=== PATIENT | male | born 1955 | race Caucasian/White ===

== ENCOUNTER 2016-09-29 09:25 | Inpatient (IN) | payer BC, OTHER ==
[2016-09-29] MEDS ORDERED: Albuterol 0.083% 2.5 MG/3 ML Neb Soln NEB ONE (10:19)
[2016-09-29] MEDS ORDERED: Sodium Chloride 0.9% 10 ML Syringe FLUSH PRN (12:05)
[2016-09-29] MEDS ORDERED: Promethazine 25 MG/ML SDV IM PRN (13:07)
[2016-09-29] MEDS ORDERED: Polyethylene Glycol 3350 Powder 17 GM Packet PO PRN (13:07)
[2016-09-29] MEDS ORDERED: Ondansetron 4 MG/2 ML SDV IVPUSH PRN (13:07)
[2016-09-29] MEDS ORDERED: diphenhydrAMINE 50 MG/ML SDV IVPUSH PRN (13:07)
[2016-09-29] MEDS ORDERED: hydrOXYzine HCl 100 MG/2 ML SDV IM PRN (13:07)
[2016-09-29] MEDS ORDERED: Zolpidem 5 MG Tab PO PRN (13:07)
[2016-09-29] MEDS ORDERED: Bisacodyl 5 MG Tab PO PRN (13:07)
[2016-09-29] MEDS ORDERED: Benzocaine/Cetylpyridinium/Menthol Lozenge MUCMEM PRN (13:07)
[2016-09-29] MEDS ORDERED: Ibuprofen 600 MG Tab PO PRN (13:09)
[2016-09-29] MEDS ORDERED: fentaNYL 100 MCG/2 ML SDV IVPUSH PRN (13:09)
[2016-09-29] MEDS ORDERED: Propofol 200 MG/20 ML SDV ONE (13:18)
[2016-09-29] MEDS ORDERED: Bupivacaine 0.5%/EPINEPHrine 1:200,000 50 ML MDV ONE (13:18)
[2016-09-29] MEDS ORDERED: Lidocaine 1% 50 ML MDV ONE (13:18)
[2016-09-29] MEDS ORDERED: Midazolam 1 MG/ML 2 ML SDV ONE (13:18)
--- NOTE | 2016-09-29 14:58 | EDM.PDOC ---
ED HPI GENERAL MEDICAL PROBLEM - General Chief Complaint: Respiratory Problem Stated Complaint: SORE THROAT, EARACHE, LOW O2 Time Seen by Provider: 09/29/16 09:58 Source of Information: Reports: Patient, Other (From clinic) History Limitations: Reports: Other (Dyspnea) - History of Present Illness INITIAL COMMENTS - FREE TEXT/NARRATIVE: This patient comes from clinic. The clinic PA called and notified us he was coming. He complains of shortness of breath since yesterday. He was unable to sleep last night he says he gets short of breath like this every month. He's been coughing up white sputum. In clinic he was hypoxic with sats in the high 70s and this came up greater than 90 with oxygen. Patient denies any edema. He denies any history of heart disease no history of CHF. He did have a AAA repair in [place] last March. He also has COPD. He does not use home oxygen. He denies fever - Related Data Allergies Allergy/AdvReac Type Severity Reaction Status Date / Time amoxicillin Allergy Rash Verified 10/20/14 06:54 Home Meds: Home Meds Ferrous Sulfate 325 mg PO BIDM 03/04/14 [History] Acetaminophen [Tylenol] 650 mg PO Q6HR PRN 09/29/16 [History] Aspirin [Halfprin] 81 mg PO DAILY 09/29/16 [History] Balsalazide [Colazal] 750 mg PO TID 09/29/16 [History] Ferrous Sulfate 325 mg PO BID 09/29/16 [History] Multivitamin [Multi-Day Vitamins] 1 tab PO DAILY 09/29/16 [History] Past Medical History Cardiovascular History: Reports: Aneurysm, Hypertension, SOB on Exertion Respiratory History: Reports: COPD Other Gastrointestinal History: "bleeding" colitis - Past Surgical History Cardiovascular Surgical History: Reports: AAA repair Respiratory Surgical History: Reports: None GI Surgical History: Reports: Hernia Repair/Other Other GI Surgeries/Procedures: hernis repair x 2 Social & Family History - Tobacco Use Smoking Status *Q: Current Some Day Smoker Years of Tobacco use: 20 Packs/Tins Daily: 0.5 Used Tobacco, but Quit: No Month Tobacco Last Used: september Second Hand Smoke Exposure: Yes - Caffeine Use Caffeine Use: Reports: Coffee, Soda - Alcohol Use Days Per Week of Alcohol Use: 0 - Recreational Drug Use Recreational Drug Use: No ED ROS GENERAL - Review of Systems Review Of Systems: ROS reveals no pertinent complaints other than HPI. ED EXAM, GENERAL - Physical Exam Exam: See Below Exam Limited By: No Limitations General Appearance: Alert, Moderate Distress, Obese Eye Exam: Bilateral Eye: Normal Inspection Nose: Normal Inspection Throat/Mouth: Normal Inspection, Normal Oropharynx, Other (Possibly some stridor ) Head: Atraumatic Neck: Normal Inspection Respiratory/Chest: Other (Breath sounds decreased in both lungs. There is a high -pitched wheezing noise in both lungs which sounds like it could be some transmitted upper airway noise) GI/Abdominal: Non-Tender Back Exam: Normal Inspection Extremities: Normal Inspection Neurological: Alert, Oriented, No Motor/Sensory Deficits Psychiatric: Normal Affect Skin Exam: Warm, Dry Course - Vital Signs Last Recorded V/S: Last Vital Signs Temp 36.1 C 09/29/16 14:30 Pulse 84 09/29/16 14:30 Resp 20 09/29/16 14:30 BP 123/73 09/29/16 14:30 Pulse Ox 96 09/29/16 14:40 - Orders/Labs/Meds Orders: Active Orders 24 hr Category Date Time Status Patient Status [ADT] Routine ADT 09/29/16 13:07 Active EKG Documentation Completion [RC] ASDIRECTED Care 09/29/16 10:19 Active Intake and Output [RC] QSHIFT Care 09/29/16 13:08 Active May Shower [RC] ASDIRECTED Care 09/29/16 13:07 Active Oxygen Therapy [RC] PRN Care 09/29/16 13:07 Active Pulse Oximetry [RC] CONTINUOUS Care 09/29/16 13:08 Active RT Aerosol Therapy [RC] ASDIRECTED Care 09/29/16 10:19 Active RT Incentive Spirometry [RC] ASDIRECTED Care 09/29/16 13:07 Active Up With Assistance [RC] ASDIRECTED Care 09/29/16 13:07 Active Vital Signs [RC] PER UNIT ROUTINE Care 09/29/16 13:07 Active Regular Diet [DIET] Diet 09/29/16 Dinner Active Chest 2V [CR] Urgent Exams 09/29/16 10:19 Taken BASIC METABOLIC PANEL,BMP [CHEM] AM Lab 09/30/16 05:11 Ordered CBC WITH AUTO DIFF [HEME] AM Lab 09/30/16 05:11 Ordered Acetaminophen/HYDROcodone [[place] 325-10 MG] Med 07/15/17 13:07 Active 2 tab PO Q4H PRN Benzocaine/Cetylpyrd/Menthol [Cepacol Sore Throat] Med 09/29/16 13:07 Active 1 lozenge MUCMEM Q1H PRN Bisacodyl [Dulcolax] Med 09/29/16 13:07 Active 5 mg PO DAILY PRN Docusate Sodium [Colace] Med 09/29/16 13:07 Active 100 mg PO BID PRN Docusate Sodium/Sennosides [Senna Plus] Med 09/29/16 13:07 Active 1 tab PO BID PRN Ibuprofen [Motrin] Med 09/29/16 13:09 Active 600 mg PO Q6H PRN Ondansetron [Zofran] Med 09/29/16 13:07 Active 4 mg IVPUSH Q6H PRN Polyethylene Glycol 3350 [MiraLAX] Med 09/29/16 13:07 Active 17 gm PO DAILY PRN Promethazine [Phenergan] Med 09/29/16 13:07 Active 25 mg IM Q6H PRN Sodium Chloride 0.9% [Saline Flush] Med 09/29/16 12:05 Active 10 ml FLUSH ASDIRECTED PRN Zolpidem [Ambien] Med 09/29/16 13:07 Active 5 mg PO BEDTIME PRN diphenhydrAMINE [Benadryl] Med 09/29/16 13:07 Active 50 mg IVPUSH Q4H PRN fentaNYL [Sublimaze] Med 09/29/16 13:09 Active 10 - 30 mcg IVPUSH Q1H PRN hydrOXYzine HCl [Vistaril] Med 09/29/16 13:07 Active 50 mg IM Q4H PRN Saline Lock Insert [OM.PC] Urgent Oth 09/29/16 12:05 Ordered Resuscitation Status Routine Resus Stat 09/29/16 13:07 Ordered EKG 12 Lead [EK] Urgent Ther 09/29/16 10:19 Ordered Medication Orders Hydrocodone Bitart/Acetaminophen ([place] 325-10 Mg) 2 tab PO Q4H PRN PRN Reason: Pain (severe 7-10) Benzocaine/Menthol (Cepacol Sore Throat) 1 lozenge MUCMEM Q1H PRN PRN Reason: Sore Throat Bisacodyl (Dulcolax) 5 mg PO DAILY PRN PRN Reason: Constipation Diphenhydramine HCl (Benadryl) 50 mg IVPUSH Q4H PRN PRN Reason: Itching Docusate Sodium (Colace) 100 mg PO BID PRN PRN Reason: Constipation Fentanyl (Sublimaze) 10 - 30 mcg IVPUSH Q1H PRN PRN Reason: Pain (severe 7-10) Hydroxyzine HCl (Vistaril) 50 mg IM Q4H PRN PRN Reason: Nausea Ibuprofen (Motrin) 600 mg PO Q6H PRN PRN Reason: Pain Ondansetron HCl (Zofran) 4 mg IVPUSH Q6H PRN PRN Reason: Nausea/Vomiting Polyethylene Glycol (Miralax) 17 gm PO DAILY PRN PRN Reason: Constipation Promethazine HCl (Phenergan) 25 mg IM Q6H PRN PRN Reason: Nausea Senna/Docusate Sodium (Senna Plus) 1 tab PO BID PRN PRN Reason: Constipation Sodium Chloride (Saline Flush) 10 ml FLUSH ASDIRECTED PRN PRN Reason: Keep Vein Open Zolpidem Tartrate (Ambien) 5 mg PO BEDTIME PRN PRN Reason: Insomnia Labs: Laboratory Tests 09/29/16 09/29/16 Range/Units 10:28 10:28 WBC 8.0 (4.5-11.0) K/uL RBC 5.19 (4.30-5.90) M/uL Hgb 14.7 (12.0-15.0) g/dL Hct 46.4 (40.0-54.0) % MCV 89 (80-98) fL MCH 28 (27-31) pg MCHC 32 (32-36) % Plt Count 248 (150-400) K/uL Neut % (Auto) 73 H (36-66) % Lymph % (Auto) 20 L (24-44) % [place] % (Auto) 6 (2-6) % Eos % (Auto) 0 L (2-4) % Baso % (Auto) 0 (0-1) % Sodium 135 L (140-148) mmol/L Potassium 4.0 (3.6-5.2) mmol/L Chloride 99 L (100-108) mmol/L Carbon Dioxide 31 (21-32) mmol/L Anion Gap 9.0 (5.0-14.0) mmol/L BUN 10 (7-18) mg/dL Creatinine 0.9 (0.8-1.3) mg/dL Est Cr Clr Drug Dosing 106.93 mL/min Estimated GFR (MDRD) > 60 (>60) Glucose 106 (74-106) mg/dL Calcium 8.9 (8.5-10.1) mg/dL Total Bilirubin 0.3 (0.2-1.0) mg/dL AST 19 (15-37) U/L ALT 23 (12-78) U/L Alkaline Phosphatase 93 (46-116) U/L Troponin I < 0.017 (0.000-0.056) ng/mL Gmn-T-Yagkoqwrjqi Pept 275 H (5-125) pg/mL Total Protein 8.2 (6.4-8.2) g/dL Albumin 3.5 (3.4-5.0) g/dL Globulin 4.7 H (2.3-3.5) g/dL Albumin/Globulin Ratio 0.7 L (1.2-2.2) Meds: Medications Generic Name Dose Route Start Last Admin Trade Name Freq PRN Reason Stop Dose Admin Hydrocodone Bitart/Acetaminophen 2 tab 09/29/16 13:07 [place] 325-10 Mg PO Q4H PRN Pain (severe 7-10) Benzocaine/Menthol 1 lozenge 09/29/16 13:07 Cepacol Sore Throat MUCMEM Q1H PRN Sore Throat Bisacodyl 5 mg 09/29/16 13:07 Dulcolax PO DAILY PRN Constipation Diphenhydramine HCl 50 mg 09/29/16 13:07 Benadryl IVPUSH Q4H PRN Itching Docusate Sodium 100 mg 09/29/16 13:07 Colace PO BID PRN Constipation Fentanyl 10 - 30 mcg 09/29/16 13:09 Sublimaze IVPUSH Q1H PRN Pain (severe 7-10) Hydroxyzine HCl 50 mg 09/29/16 13:07 Vistaril IM Q4H PRN Nausea Ibuprofen 600 mg 09/29/16 13:09 Motrin PO Q6H PRN Pain Ondansetron HCl 4 mg 09/29/16 13:07 Zofran IVPUSH Q6H PRN Nausea/Vomiting Polyethylene Glycol 17 gm 09/29/16 13:07 Miralax PO DAILY PRN Constipation Promethazine HCl 25 mg 09/29/16 13:07 Phenergan IM Q6H PRN Nausea Senna/Docusate Sodium 1 tab 09/29/16 13:07 Senna Plus PO BID PRN Constipation Sodium Chloride 10 ml 09/29/16 12:05 Saline Flush FLUSH ASDIRECTED PRN Keep Vein Open Zolpidem Tartrate 5 mg 09/29/16 13:07 Ambien PO BEDTIME PRN Insomnia Discontinued Medications Generic Name Dose Route Start Last Admin Trade Name Freq PRN Reason Stop Dose Admin Albuterol 2.5 mg 09/29/16 10:19 09/29/16 10:27 Proventil Neb Soln NEB 09/29/16 10:20 2.5 mg ONETIME ONE Administration Bupivacaine HCl/Epinephrine Bitart Confirm 09/29/16 13:18 Marcaine 0.5%/Epinephrine 1:200,000 Administered 09/29/16 13:19 Dose 50 ml .ROUTE .STK-MED ONE Lidocaine HCl Confirm 09/29/16 13:18 Xylocaine 1% Administered 09/29/16 13:19 Dose 50 ml .ROUTE .STK-MED ONE Midazolam HCl Confirm 09/29/16 13:18 Versed 1 Mg/Ml Administered 09/29/16 13:19 Dose 2 mg .ROUTE .STK-MED ONE Propofol Confirm 09/29/16 13:18 Diprivan 20 Ml Administered 09/29/16 13:19 Dose 200 mg .ROUTE .STK-MED ONE - Radiology Interpretation Free Text/Narrative:: Chest x-ray shows complete collapse of the right lung. No evidence of tension pneumothorax. Heart size looks normal. - Re-Assessments/Exams Free Text/Narrative Re-Assessment/Exam: 09/29/16 14:56 Dr. Patel was notified and he has come to the emergency department to see the patient. He will be taking him to surgery shortly Departure - Departure Time of Disposition: 14:57 Disposition: Admitted As Inpatient 68 Condition: Fair Clinical Impression: Collapse of right lung - Discharge Information - My Orders Last 24 Hours: My Active Orders 09/29/16 10:19 EKG Documentation Completion [RC] ASDIRECTED RT Aerosol Therapy [RC] ASDIRECTED Chest 2V [CR] Urgent EKG 12 Lead [EK] Urgent 09/29/16 12:05 Sodium Chloride 0.9% [Saline Flush] 10 ml FLUSH ASDIRECTED PRN Saline Lock Insert [OM.PC] Urgent - Assessment/Plan Last 24 Hours: My Active Orders 09/29/16 10:19 EKG Documentation Completion [RC] ASDIRECTED RT Aerosol Therapy [RC] ASDIRECTED Chest 2V [CR] Urgent EKG 12 Lead [EK] Urgent 09/29/16 12:05 Sodium Chloride 0.9% [Saline Flush] 10 ml FLUSH ASDIRECTED PRN Saline Lock Insert [OM.PC] Urgent
[2016-09-29] MEDS: Acetaminophen/HYDROcodone 325-10 MG Tab PO PRN ×2 (15:28→19:51)
[2016-09-29] MEDS: Ferrous Sulfate 325 MG Tab PO SCH (18:24)
--- NOTE | 2016-09-29 20:45 | CONS ---
DATE OF SERVICE: 09/29/2016 REFERRING PHYSICIAN: CONSULTING PHYSICIAN: Manjit Patel MD REASON FOR CONSULTATION: Shortness of breath. HISTORY OF PRESENT ILLNESS: A pleasant 60-year-old male, who has had a less than 24-hour history of right-sided chest pain. This is a new problem for him. Pain is described as 1 to 2/10. This started yesterday when he jumped out of a semi, but did not fall nor was there any evidence of trauma or other abnormalities. PAST MEDICAL HISTORY: 1. Inguinal hernia. 2. History of colitis. PAST SURGICAL HISTORY: No previous pneumothorax repair on the right side. SOCIAL HISTORY: He has remote smoking history. REVIEW OF SYSTEMS: GENERAL: The patient has no concerns. HEENT: No symptoms. CARDIOVASCULAR: No history of myocardial infarction per the patient/chart. RESPIRATORY: As above. GASTROINTESTINAL: No symptoms. The remainder review of systems was reviewed and is negative. PHYSICAL EXAMINATION: VITAL SIGNS: Blood pressure 153/93 and 93% on 2 L. HEENT: Pupils are equal. NECK: Supple. LUNGS: No air movement, right. CARDIOVASCULAR: Regular rhythm and rate. ABDOMEN: Bowel sounds positive. EXTREMITIES: Full range of motion. Strength 5/5. NEUROLOGIC: Oriented x3. PSYCH: No gross depression. LABORATORY DATA: White blood cell count, hemoglobin, and creatinine are all normal. IMAGING: I did review the chest x-ray on 09/29 which shows a right-sided pneumothorax. ASSESSMENT: Pneumothorax. PLAN: The patient will be taken to the operating room for a chest tube placement. We discussed risks, benefits, alternatives, and limitations, including, but not limited to infection, bleeding, requirement for reoperation, requirement for replacement of chest tube and other risks not listed here. The patient understands these risks and wishes to proceed. Manjit Patel MD /[id number]
[2016-09-29] MEDS: BALSALAZIDE 750 MG PO SCH (21:00)
[2016-09-30] MEDS: BALSALAZIDE 750 MG PO SCH ×3 (05:01→20:54)
[2016-09-30] MEDS: Aspirin 81 MG Tab.EC PO SCH (08:15)
[2016-09-30] MEDS: Multivitamins with Iron/Calcium/Folic Acid/Minerals Tab PO SCH (08:15)
[2016-09-30] MEDS: Ferrous Sulfate 325 MG Tab PO SCH ×2 (08:15→17:00)
[2016-09-30] MEDS: Acetaminophen/HYDROcodone 325-10 MG Tab PO PRN ×2 (08:15→22:16)
--- NOTE | 2016-09-30 10:29 | PN ---
DATE OF SERVICE: 09/30/2016 SUBJECTIVE: The patient is doing well today. He subjectively states his breathing significantly improved. No nausea, vomiting, shortness of breath, or chest pain. OBJECTIVE: VITAL SIGNS: The patient is afebrile 97.2, blood pressure 139/74, 93% on 2 L CARDIOVASCULAR: Regular rate. RESPIRATORY: Improved inspiratory effort bilaterally. Crackles right. LABORATORY RESULTS: Normal CBC, normal basic metabolic panel. IMAGING: I did review the chest x-ray which shows a fully-inflated right lung. ASSESSMENT AND PLAN: We will continue chest tube. This does have a small air leak on it and this will probably take a few days to seal. We will continue daily chest x-ray. We will work on diet and activity. Manjit Patel MD /[id number]
[2016-10-01] MEDS: BALSALAZIDE 750 MG PO SCH ×3 (05:44→20:34)
[2016-10-01] MEDS: Acetaminophen/HYDROcodone 325-10 MG Tab PO PRN (08:04)
[2016-10-01] MEDS: Ferrous Sulfate 325 MG Tab PO SCH ×2 (08:05→17:11)
[2016-10-01] MEDS: Aspirin 81 MG Tab.EC PO SCH (08:06)
[2016-10-01] MEDS: Multivitamins with Iron/Calcium/Folic Acid/Minerals Tab PO SCH (08:06)
--- NOTE | 2016-10-01 08:29 | OR ---
DATE OF PROCEDURE: 09/29/2016 PROCEDURE: Right-sided chest tube placement. PREOPERATIVE DIAGNOSIS: Pneumothorax. POSTOPERATIVE DIAGNOSIS: Pneumothorax. RISK: Risks, benefits, alternatives, and limitations, including, but not limited to infection, bleeding, pneumothorax, and other risks were explained to the patient and they wished to proceed. PROCEDURE IN DETAIL: The patient was placed in left lateral decubitus position. The right side was then prepped and draped. The skin was anesthetized with lidocaine. A single transverse incision was made and a Jessica clamp was used to dilate the tract. There was noted to be a camar[place] of air consistent with pneumothorax. A 20-Persian tube was then introduced and advanced into the chest proper. There was noted to be condensation on the tube, this was hooked to -20 mmHg and there was bubbling consistent with pneumothorax. This was then sutured into place and appropriate dressings were applied. The patient tolerated the procedure well. Manjit Patel MD /[id number]
--- NOTE | 2016-10-01 09:35 | CR ---
Chest 2V HISTORY: Chest pain COMPARISON: 05/24/2008 FINDINGS: Very large right-sided pneumothorax. No mediastinal shift. Left lung is clear. No effusion s.
--- NOTE | 2016-10-01 09:37 | CR ---
Chest 1V Frontal HISTORY: Chest pain, pneumothorax. COMPARISON: Chest x-ray 09/29/2016. FINDINGS: Interval placement of right-sided chest tube. The pneumothorax is markedly improved. Tiny right apical pneumothorax. Subcutaneous gas in the neck and right chest. No new infiltrates.
--- NOTE | 2016-10-01 09:38 | CR ---
Chest 1V Frontal HISTORY: Right-sided chest tube COMPARISON: 09/30/2016. FINDINGS: Increased subcutaneous emphysema. Right-sided chest tube. Tiny right apical pneumothorax. No new infiltrates.
[2016-10-01] MEDS: Acetaminophen 325 MG Tab PO PRN (17:11)
[2016-10-02] MEDS: BALSALAZIDE 750 MG PO SCH ×3 (04:51→20:37)
[2016-10-02] MEDS: Acetaminophen 325 MG Tab PO PRN ×2 (07:27→17:48)
--- NOTE | 2016-10-02 09:32 | CR ---
Chest 1V Frontal HISTORY: Pneumothorax right-sided chest tube. COMPARISON: 10/02/2016. FINDINGS: Mid right chest tube. Subcutaneous right chest and right neck emphysema similar to slightl y improved. Interval increased size of right apical pneumothorax from yesterday's film. Left lung demonstrates n o infiltrates.
[2016-10-02] MEDS: Ferrous Sulfate 325 MG Tab PO SCH ×2 (09:39→17:44)
[2016-10-02] MEDS: Multivitamins with Iron/Calcium/Folic Acid/Minerals Tab PO SCH (09:40)
[2016-10-02] MEDS: Aspirin 81 MG Tab.EC PO SCH (09:40)
[2016-10-03] MEDS: BALSALAZIDE 750 MG PO SCH ×3 (05:19→20:33)
[2016-10-03] MEDS ORDERED: Bupivacaine 0.5%/EPINEPHrine 1:200,000 50 ML MDV ONE (06:44)
[2016-10-03] MEDS ORDERED: Midazolam 1 MG/ML 2 ML SDV ONE (07:31)
[2016-10-03] MEDS ORDERED: fentaNYL 100 MCG/2 ML SDV ONE (07:31)
[2016-10-03] MEDS ORDERED: Propofol 200 MG/20 ML SDV ONE (07:31)
[2016-10-03] MEDS ORDERED: ceFAZolin 1 GM Vial ONE (07:36)
[2016-10-03] MEDS ORDERED: Iopamidol 612 MG/ML 100 ML Bottle IV PRN (10:13)
[2016-10-03] MEDS ORDERED: Sodium Chloride 0.9% 10 ML Syringe FLUSH ONE (10:13)
[2016-10-03] MEDS ORDERED: Sodium Chloride 0.9% 75 ML IV SCH (10:15)
[2016-10-03] MEDS: Acetaminophen 325 MG Tab PO PRN (11:01)
[2016-10-03] MEDS: Aspirin 81 MG Tab.EC PO SCH (11:01)
[2016-10-03] MEDS: Multivitamins with Iron/Calcium/Folic Acid/Minerals Tab PO SCH (11:01)
[2016-10-03] MEDS: Ferrous Sulfate 325 MG Tab PO SCH ×2 (11:01→17:31)
--- NOTE | 2016-10-03 11:21 | CR ---
Chest 1V Frontal HISTORY: Pneumothorax right-sided chest tube. COMPARISON: 10/03/2016 at 0441 hours FINDINGS: Right-sided chest tube. Now with new second right-sided chest tube. Previously seen pneumo thorax at the right lung apex appears to have resolved. No new infiltrates. Extensive subcutaneous e mphysema in the neck and right chest.
--- NOTE | 2016-10-03 11:22 | CR ---
Chest 1V Frontal HISTORY: Pneumothorax on the right right-sided chest tube. COMPARISON: 10/02/2016 at 0 4:35 AM hours FINDINGS: Right-sided chest tube. Small right apical pneumothorax similar to prior study. Moderate s ubcutaneous emphysema. No new infiltrates.
--- NOTE | 2016-10-03 11:28 | CT ---
Chest w Cont HISTORY: Air leak right chest. Dose: Total DLP 710. COMPARISON: Multiple prior chest radiographs FINDINGS: Extensive subcutaneous emphysema in the right chest, right axillary region and upper media stinum. There are multiple small emphysematous blebs at the right lung apex seen best on coronal renita ge 55 through 57. Small apical blebs also present at the left lung apex. I do not see significant pn eumothorax. Tiny pneumothorax adjacent to the entry of the chest tubes anterior to the right upper l obe as well as tiny pneumothorax anterior and medial to the right middle lobe measuring only a few m illimeters in thickness. Left lung demonstrates no infiltrates. Impression: 1. 2 right-sided chest tubes. Only a tiny residual anterior and medial right-sided pneumothorax. 2. Small emphysematous blebs at the right and left lung apex. 3. Extensive subcutaneous emphysema and pneumomediastinum.
--- NOTE | 2016-10-03 12:11 | OR ---
DATE OF PROCEDURE: 10/03/2016 PROCEDURE: Placement of right chest tube, 28-Setswana. COMPLICATIONS: None. 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 ANESTHESIA: MAC/local. INDICATIONS: This is a pleasant 60-year-old male with an ongoing air leak of his right chest requiring a second chest tube placement to close the air leak. Risks, benefits, alternatives, and limitations including, but not limited to infection, bleeding, injury to chest, lungs, blood vessels, and other risks were explained to the patient, and he wished to proceed. PROCEDURE IN DETAIL: The patient was placed in left lateral decubitus position. The chest was prepped and draped. The previous chest tube remained in place. The skin and deeper layers were anesthetized with 30 mL of lidocaine. A single transverse incision was made approximately 1 cm in size. A Jessica was used to dissect downward and a Pean was used to enter the chest. A pop was felt entering the chest cavity, however, no air camarillo was noted, as the patient has a chest tube in. The chest tube was then advanced without difficulty. This was then secured into place. This was at 12 cm to the skin. There was good tidaling noted. There was condensation noted in the tube and air movement could be heard through the chest tube. The patient tolerated the procedure well. Manjit Patel MD /[id number]
[2016-10-03] MEDS: Acetaminophen/HYDROcodone 325-10 MG Tab PO PRN ×2 (17:32→22:54)
[2016-10-04] MEDS: Sodium Chloride 0.9% 1,000 ML IV SCH ×4 (00:10→22:55)
--- NOTE | 2016-10-04 09:30 | CR ---
Chest 1V Frontal HISTORY: Pneumothorax. COMPARISON: CT chest and chest x-ray 10/03/2016. FINDINGS: 2 right-sided chest tubes. Small right apical pneumothorax measuring approximately 8 mm. E xtensive subcutaneous emphysema. No new infiltrates. Pneumomediastinum in the upper mediastinum whic h was seen on prior chest CT scan. No left-sided pneumothorax.
[2016-10-04] MEDS: Ferrous Sulfate 325 MG Tab PO SCH ×2 (10:20→17:29)
[2016-10-04] MEDS: BALSALAZIDE 750 MG PO SCH ×3 (10:20→21:31)
[2016-10-04] MEDS: Aspirin 81 MG Tab.EC PO SCH (10:21)
[2016-10-04] MEDS: Multivitamins with Iron/Calcium/Folic Acid/Minerals Tab PO SCH (10:22)
[2016-10-04] MEDS ORDERED: Ondansetron 4 MG/2 ML SDV ONE (10:24)
[2016-10-04] MEDS ORDERED: Succinylcholine/Normal Saline 200 MG/10 ML Syringe ONE (10:24)
[2016-10-04] MEDS ORDERED: Propofol 200 MG/20 ML SDV ONE (10:24)
[2016-10-04] MEDS ORDERED: Neostigmine Methylsulfate 1 MG/ML 5 ML Syringe ONE (10:24)
[2016-10-04] MEDS ORDERED: Rocuronium 50 MG/5 ML Vial ONE ×2 (10:24→11:56)
[2016-10-04] MEDS ORDERED: Dexamethasone 4 MG/ML SDV ONE (10:24)
[2016-10-04] MEDS ORDERED: Lactated Ringers 1,000 ML ONE (10:24)
[2016-10-04] MEDS ORDERED: Midazolam 1 MG/ML 2 ML SDV ONE (10:24)
[2016-10-04] MEDS ORDERED: Bupivacaine 0.5%/EPINEPHrine 1:200,000 50 ML MDV ONE (10:43)
[2016-10-04] MEDS ORDERED: Heparin Sodium 5,000 Units/ML Vial ONE (10:47)
[2016-10-04] MEDS ORDERED: fentaNYL 250 MCG/5 ML SDV ONE (10:53)
[2016-10-04] MEDS ORDERED: Naloxone 0.4 MG/ML SDV IVPUSH PRN (10:56)
[2016-10-04] MEDS ORDERED: Lidocaine 1% 2 ML ONE (11:10)
[2016-10-04] MEDS ORDERED: ePHEDrine 50 MG/ML SDV ONE (11:56)
[2016-10-04] MEDS ORDERED: Bacitracin Oint 1 GM U/D Packet ONE (12:12)
[2016-10-04] MEDS ORDERED: fentaNYL 100 MCG/2 ML SDV ONE (12:19)
[2016-10-04] MEDS ORDERED: ceFAZolin 1 GM Vial ONE (12:21)
--- NOTE | 2016-10-04 14:32 | CR ---
Chest 1V Frontal HISTORY: Chest tube. Pneumothorax. COMPARISON: 04/06/2016 at 0441 hours FINDINGS: 1 of the right-sided chest tubes has been repositioned more superiorly. The previously see n pneumothorax at the right lung apex is no longer apparent. Extensive subcutaneous emphysema unchan ged. No new infiltrates.
[2016-10-04] MEDS ORDERED: Naloxone 0.4 MG/ML SDV IV PRN (15:02)
[2016-10-04] MEDS ORDERED: diphenhydrAMINE 50 MG/ML SDV IVPUSH PRN (15:02)
[2016-10-04] MEDS: fentaNYL 2,500 MCG in Sodium Chloride 0.9% 200 ML EPIDUR SCH (15:12)
[2016-10-05] MEDS: BALSALAZIDE 750 MG PO SCH ×3 (04:52→21:02)
[2016-10-05] MEDS: fentaNYL 2,500 MCG in Sodium Chloride 0.9% 200 ML EPIDUR SCH (05:34)
[2016-10-05] MEDS: Sodium Chloride 0.9% 1,000 ML IV SCH ×2 (06:53→15:54)
[2016-10-05] MEDS: Ferrous Sulfate 325 MG Tab PO SCH ×2 (08:38→17:26)
[2016-10-05] MEDS: Aspirin 81 MG Tab.EC PO SCH (08:38)
[2016-10-05] MEDS: Multivitamins with Iron/Calcium/Folic Acid/Minerals Tab PO SCH (08:39)
[2016-10-05] MEDS: Docusate Sodium 100 MG Cap PO PRN (08:41)
--- NOTE | 2016-10-05 09:59 | CR ---
Chest 1V Frontal HISTORY: Pneumothorax. Right-sided chest tubes. COMPARISON: 10/04/2016. FINDINGS: 2 right-sided chest tubes. Extensive subcutaneous emphysema. No residual pneumothorax is s een. No new infiltrates. No congestive change.
--- NOTE | 2016-10-05 10:42 | PN ---
DATE OF SERVICE: 10/05/2016 SUBJECTIVE: The patient is doing well today. Pain is well controlled. No nausea, vomiting, shortness of breath, or chest pain. OBJECTIVE: VITAL SIGNS: Stable. Pulse 53, blood pressure 113/56, and 95% on 3 L. CARDIOVASCULAR: Regular rhythm and rate. RESPIRATORY: Mild crackles noted on the right side (consistent with chest tube placement). LABORATORY RESULTS: Show a normal CBC and essentially a normal basic metabolic panel. IMAGING: Chest x-ray, this morning shows chest tubes noted no evidence of pneumothorax. ASSESSMENT: Status post chest tube placement. PLAN: We will continue incentive spirometry at this time. We will continue advancing his diet. We will continue his epidural. Lovenox will be held until his epidural was removed. Manjit Patel MD /[id number]
[2016-10-05] MEDS ORDERED: Furosemide 20 MG/2 ML VIAL IVPUSH ONE (17:50)
[2016-10-05] MEDS: Albuterol/Ipratropium 3.0-0.5 MG/3 ML Neb Soln NEB PRN (18:07)
[2016-10-06] MEDS: fentaNYL 2,500 MCG in Sodium Chloride 0.9% 200 ML EPIDUR SCH (02:30)
[2016-10-06] MEDS: BALSALAZIDE 750 MG PO SCH ×3 (04:56→20:36)
[2016-10-06] MEDS: Aspirin 81 MG Tab.EC PO SCH (08:33)
[2016-10-06] MEDS: Ferrous Sulfate 325 MG Tab PO SCH ×2 (08:33→17:00)
[2016-10-06] MEDS: Multivitamins with Iron/Calcium/Folic Acid/Minerals Tab PO SCH (08:33)
[2016-10-06] MEDS ORDERED: Morphine 4 MG/ML Syringe IVPUSH PRN (10:20)
[2016-10-06] MEDS ORDERED: Tamsulosin 0.4 MG Cap.ER PO PRN (10:21)
[2016-10-06] MEDS ORDERED: Furosemide 20 MG/2 ML VIAL IVPUSH ONE (10:45)
[2016-10-06] MEDS: Albuterol/Ipratropium 3.0-0.5 MG/3 ML Neb Soln NEB PRN (14:08)
[2016-10-06] MEDS: Docusate Sodium 100 MG Cap PO PRN (16:59)
[2016-10-06] MEDS: Acetaminophen/oxyCODONE 325-10 MG Tab PO PRN (20:34)
[2016-10-06] MEDS ORDERED: Enoxaparin 40 MG/0.4 ML Syringe SUBCUT SCH (22:30)
[2016-10-07] MEDS: BALSALAZIDE 750 MG PO SCH ×3 (04:17→20:57)
[2016-10-07] MEDS: Ferrous Sulfate 325 MG Tab PO SCH ×2 (07:48→18:13)
[2016-10-07] MEDS: Acetaminophen/oxyCODONE 325-10 MG Tab PO PRN ×2 (07:56→15:43)
[2016-10-07] MEDS: Aspirin 81 MG Tab.EC PO SCH (08:03)
[2016-10-07] MEDS: Multivitamins with Iron/Calcium/Folic Acid/Minerals Tab PO SCH (09:00)
--- NOTE | 2016-10-07 11:05 | PN ---
DATE OF SERVICE: 10/07/2016 SUBJECTIVE: The patient is doing very well today. His pain is controlled with minimal pain medications. He is having bowel movements. No nausea, vomiting, shortness of breath, or chest pain. OBJECTIVE: VITAL SIGNS: Stable. Blood pressure 108/45, temperature 98.8, respirations 16, and 96% on 2 L. CARDIOVASCULAR: Regular rhythm and rate. RESPIRATORY: Improved inspiratory effort bilaterally. DIAGNOSTIC DATA: Chest x-ray today, no official report; however, on cursory examination, the chest x-ray shows good insufflation of the lung. No evidence of pneumonia. ASSESSMENT: Status post lung resection. PLAN: The patient will be transferred to the floor today. He will continue to work on diet and activity. Anticipation of discharge in the next 1 to 3 days. Manjit Patel MD /[id number]
[2016-10-07] MEDS: Acetaminophen 325 MG Tab PO PRN (19:35)
[2016-10-07] MEDS: Albuterol/Ipratropium 3.0-0.5 MG/3 ML Neb Soln NEB PRN (19:50)
[2016-10-08] MEDS: Acetaminophen/oxyCODONE 325-10 MG Tab PO PRN ×3 (01:09→18:10)
[2016-10-08] MEDS: BALSALAZIDE 750 MG PO SCH ×3 (04:19→20:57)
[2016-10-08] MEDS: Acetaminophen 325 MG Tab PO PRN ×2 (04:27→12:15)
[2016-10-08] MEDS: Aspirin 81 MG Tab.EC PO SCH (08:03)
[2016-10-08] MEDS: Multivitamins with Iron/Calcium/Folic Acid/Minerals Tab PO SCH (08:03)
[2016-10-08] MEDS: Ferrous Sulfate 325 MG Tab PO SCH ×2 (08:03→18:10)
--- NOTE | 2016-10-08 09:34 | CR ---
Portable chest Comparison: Previous day. 2 right-sided chest tubes are unchanged. There is no visualized pneumothorax. There is subcutaneous air. Impression: 1. No evidence for pneumothorax.
--- NOTE | 2016-10-08 09:35 | CR ---
Portable chest Comparison: Previous day. 2 right-sided chest tubes are unchanged in position. There is no pneumothorax. The heart and vascula r structures are stable. Impression: 1. No acute findings.
--- NOTE | 2016-10-08 09:36 | CR ---
Portable chest Comparison: Previous day. The 2 right-sided chest tubes are unchanged. There is no visualized pneumothorax. The heart and vasc ular structures are stable. There is decreasing subcutaneous air. Impression: 1. No evidence for pneumothorax.
--- NOTE | 2016-10-08 17:22 | PN ---
DATE OF SERVICE: 10/08/2016 SUBJECTIVE: The patient is doing well today. Pain is well controlled. No nausea, vomiting, shortness of breath, or chest pain. OBJECTIVE: VITAL SIGNS: Stable. CARDIOVASCULAR: Regular rhythm and rate. RESPIRATORY: Lungs clear to auscultation bilaterally. ABDOMEN: Bowel sounds are positive. Chest x-ray shows an insufflated lung. ASSESSMENT: Status post lung resection. PLAN: The patient continues to improve. If he continues on this course, we will water seal in chest tube in the a.m. and evaluate for chest tube removal. Manjit Patel MD /[id number]
[2016-10-09] MEDS: Acetaminophen/oxyCODONE 325-10 MG Tab PO PRN (01:11)
[2016-10-09] MEDS: BALSALAZIDE 750 MG PO SCH ×2 (04:39→12:58)
[2016-10-09] MEDS: Acetaminophen 325 MG Tab PO PRN (04:50)
[2016-10-09] MEDS: Ferrous Sulfate 325 MG Tab PO SCH (07:34)
[2016-10-09] MEDS: Aspirin 81 MG Tab.EC PO SCH (09:07)
[2016-10-09] MEDS: Multivitamins with Iron/Calcium/Folic Acid/Minerals Tab PO SCH (09:07)
--- NOTE | 2016-10-09 09:48 | CR ---
Portable chest Comparison: Previous day. Findings: 2 right chest tubes are unchanged position. There is no pneumothorax. The lung barrera are clear. There are no effusions. The heart and vascular structures are stable. The left lung is unrema rkable. Impression: 1. No interval change.
--- NOTE | 2016-10-09 09:49 | CR ---
Portable chest Comparison: Earlier same day. Right chest tubes are unchanged. There is no evidence for pneumothorax with waterseal. Impression: 1. No evidence for pneumothorax.
[2016-10-09 12:50] VITALS: BP 136/92
--- NOTE | 2016-10-09 13:48 | PN ---
DATE OF SERVICE: 10/09/2016 SUBJECTIVE: The patient is doing well. No nausea, vomiting, or shortness of breath, or chest pain. OBJECTIVE: VITAL SIGNS: Stable. CARDIOVASCULAR: Regular rhythm and rate. RESPIRATORY: Lungs clear to consultation bilaterally. ABDOMEN: Bowel sounds are positive. ASSESSMENT: Status post lung resection. PLAN: We will remove his chest tube today. We discussed risks, benefits, alternatives, and limitations of this plan. The patient understands these risks and wishes to proceed. Manjit Patel MD /[id number]
--- NOTE | 2016-10-09 13:49 | CR ---
Portable chest Comparison: Earlier same day. There has been interval removal of the 2 right-sided chest tubes. There is a very small right apical pneumothorax visualized. The heart and vascular structures are stable. Impression: 1. Tiny right apical pneumothorax following removal of chest tubes.
--- NOTE | 2016-10-09 14:06 | DISCH ---
DISCHARGE DIAGNOSIS: Status post right lung resection. HOSPITAL COURSE: This is a pleasant 60-year-old male, who underwent a resection of his right lung and he was refractory to pneumothoraces treatment with chest tubes. The patient did well in this hospitalization. Prior to discharge, he had a chest tube water seal test and he past this. The chest tube was removed and subsequent postop chest x-ray showed no pneumothorax. The patient was prescribed with antibiotic as one of the old chest tube site showed small amount of erythema concerning for possible infection. FOLLOWUP: Follow up with Surgery in 7 to 14 days. ACTIVITY: As tolerated. He is to continue his incentive spirometry. COMPLICATIONS DURING THIS HOSPITALIZATION: None. ADDITIONAL CONSULTATIONS DURING THIS HOSPITALIZATION: None.
--- NOTE | 2016-10-10 07:44 | OR ---
DATE OF PROCEDURE: 10/09/2016 PROCEDURES: 1. Removal of chest tubes, right. 2. Incision and drainage of the abscess, right chest. COMPLICATIONS: None. HOLLOW WARE MAKER: None. ANESTHETIC: None. INDICATIONS: A pleasant 60-year-old male with two chest tubes noted on his right side requiring removal. He has remained stable on water-seal for several hours. Risks, benefits, alternatives, and limitations, including, but not limited to infection, bleeding, and requirements for replacement of chest tubes were explained to the patient and he wishes to proceed. PROCEDURE IN DETAIL: The patient was placed in left lateral decubitus position. The area dressings were removed. The stitches were cut. The chest tubes were removed with the patient's maximum expiration. Vessel intact. Gauze and dressings were applied. Also the patient has a small area of possible infection of previous chest tube site. This was opened and irrigated and packed with Iodoform gauze. The patient tolerated the procedure well. Manjit Patel MD /[id number]
--- NOTE | 2016-10-11 09:52 | OR ---
DATE OF PROCEDURE: 09/29/2016 PROCEDURE PERFORMED: Right-sided chest tube placement (20-Latvian). COMPLICATIONS: None. ASSISTANTS: None. ANESTHESIA: MAC/local. INDICATIONS: This is a 60-year-old male who has had a spontaneous pneumothorax and is a smoker, requiring chest tube. RISKS: Risks, benefits, alternatives, and limitations including, but not limited to infection, bleeding, injury to lung and other structures were explained to the patient. PROCEDURE IN DETAIL: The patient was placed in the left lateral decubitus position. The right chest was prepped and draped. At approximately the fourth intercostal space, this was numbed with lidocaine including the tract. A single zora was created in the skin approximately 1 cm. The 20-Latvian chest tube was introduced after dilating the tract. This was then sutured into place and was hooked to suction. Tidaling was noted. Dressings were applied. The patient tolerated the procedure well. Manjit Patel MD /[id number]
--- NOTE | 2016-10-12 13:29 | OR ---
DATE OF PROCEDURE: 10/04/2016 PROCEDURES: 1. Video-assisted thorascopic surgery with segmental lumbar section (63034). 2. Chest tube placement, right (39211 x2). COMPLICATIONS: None. HELMINTHOLOGY TEACHER: None. INDICATIONS: A pleasant 60-year-old male, who was noted to have a blood air leak refractory to his chest tube placements. POSTOPERATIVE DIAGNOSIS: A pleasant 60-year-old male, who was noted to have a blood air leak refractory to his chest tube placements. Risk: Risks, benefits, alternatives, and limitations, including, but not limited to infection, bleeding, requirement for reoperation, failure of the procedure, injury to lung, blood vessel, and other chest structures were explained to the patient. ANESTHESIA: Epidural/bilateral endotracheal tube/local. PROCEDURE IN DETAIL: The patient was placed in the left lateral decubitus position. The right chest was prepped and draped. The previous chest tubes would be removed during this procedure and replaced with new chest tubes. The two new ports would be utilized during this procedure and they were both anesthetized with lidocaine. A single 1-cm incision was made in both of these. An additional port will be used through the previous port site. The right lung was deflated and subsequently interrogated. It was noted the patient had a significant bleb at the apex of his right lung, matching his CT scan. This would be transected with a combination of purple and black load with the self-overlay stapler, 60 mm. Once this was resected, the bag was used to remove the specimen and sent to Pathology. After this, the chest area of blood was filled with irrigation and no air leaks were noted once air moved into his lungs. This was removed and then reinspected for bleeding which there was none. A 28 curved and a 30 straight Romansh chest tubes were entered into new port sites. These ports were then removed. The lung was insufflated under direct visualization without abnormality. The chest tubes were sutured into place and the procedure was terminated. The patient tolerated the procedure well. Manjit Patel MD /[id number]
--- NOTE | 2016-10-25 20:39 | PN ---
DATE OF SERVICE: 10/01/2016 SUBJECTIVE: The patient is doing well. Pain is well controlled. No nausea, vomiting, shortness of breath, or chest pain. Chest tube is functioning well. OBJECTIVE: VITAL SIGNS: Stable. Temperature 98, blood pressure 134/86, pulse 86, respirations 20, 95% on 1 L. CARDIOVASCULAR: Regular rhythm and rate. RESPIRATORY: Lungs clear to auscultation with poor inspiratory effort on the right side. ASSESSMENT AND PLAN: Continue chest tube. If patient continued to have an air leak, we will continue to observe this at this time. Manjit Patel MD /[id number]
== END 2016-10-09 15:20 | disposition home or self-care (01) | DRG 121 ==
LOC: JP.ED 09:25 → JP.SDS 13:24 → JP.MS 13:37 → JP.ICU 10-04 13:45 → JP.MS 10-07 11:20
PROVIDERS: ADMIT Surgery; ATTEND Surgery
PROC: 0W9900Z Drainage of Right Pleural Cavity with Drainage Device, Open Approach (ICD-10-PCS; principal; 2016-09-29)
PROC: 0W9900Z Drainage of Right Pleural Cavity with Drainage Device, Open Approach (ICD-10-PCS; 2016-10-03)
PROC: 0W9900Z Drainage of Right Pleural Cavity with Drainage Device, Open Approach (ICD-10-PCS; 2016-10-04)
PROC: 0BPKX0Z Removal of Drainage Device from Right Lung, External Approach (ICD-10-PCS; 2016-10-04)
PROC: 0BBC4ZX Excision of Right Upper Lung Lobe, Percutaneous Endoscopic Approach, Diagnostic (ICD-10-PCS; 2016-10-04)
PROC: 0J960ZZ Drainage of Chest Subcutaneous Tissue and Fascia, Open Approach (ICD-10-PCS; 2016-10-09)
PROC: 0BPKX0Z Removal of Drainage Device from Right Lung, External Approach (ICD-10-PCS; 2016-10-09)
DX: J93.9 Pneumothorax, unspecified (principal); Z87.891 Personal history of nicotine dependence; I10 Essential (primary) hypertension; J44.9 Chronic obstructive pulmonary disease, unspecified; Z88.1 Allergy status to other antibiotic agents; Z79.82 Long term (current) use of aspirin; J93.82 Other air leak; L02.213 Cutaneous abscess of chest wall
CPT/HCPCS: 36415; 71010; 71010-26; 71020; 71020-26; 71260; 71260-26; 80048; 80053; 83880; 84484; 85025; 85027; 86850; 86900; 86901; 86920; 86922; 88307; 93005; 94640; 94640-76; 94762; 96372; 96374; 96375; 99284-25; A9270-GY; J0690; J1100; J1644; J1650; J1940; J2250; J2405; J2704; J3010; J7030; J7040; J7050; J7120; J7620; Q9967

== ENCOUNTER 2017-04-15 10:32 | Emergency (ER) | payer BC, OTHER ==
[2017-04-15] MEDS ORDERED: Sodium Chloride 0.9% 10 ML Syringe FLUSH PRN (11:14)
[2017-04-15] MEDS ORDERED: Lactated Ringers 1,000 ML IV SCH (11:15)
[2017-04-15] MEDS ORDERED: Albuterol/Ipratropium 3.0-0.5 MG/3 ML Neb Soln NEB ONE (11:18)
--- NOTE | 2017-04-15 11:22 | EDM.PDOC ---
ED HPI GENERAL MEDICAL PROBLEM - General Chief Complaint: Gastrointestinal Problem Stated Complaint: BLOODY STOOLS Time Seen by Provider: 04/15/17 11:04 Source of Information: Reports: Patient, RN Notes Reviewed History Limitations: Reports: No Limitations - History of Present Illness INITIAL COMMENTS - FREE TEXT/NARRATIVE: 61-year-old gentleman presents to the emergency department day complaint of black tarry stools, he states he usually gets this once a month however today as well as the last couple days he's noticed bright red blood per stool he has had a colonoscopy a couple years ago. He also has shortness of breath however he describes this not beyond baseline he normally does not wear oxygen at home, has difficulty speaking in more than 2 and 3 word sentences Left Groin Pain Score (Numeric/FACES): 3 - Related Data Allergies Allergy/AdvReac Type Severity Reaction Status Date / Time amoxicillin Allergy Rash Verified 10/20/14 06:54 Home Meds: Home Meds Ferrous Sulfate 325 mg PO BIDM 03/04/14 [History] Acetaminophen [Tylenol] 650 mg PO Q6HR PRN 09/29/16 [History] Aspirin [Halfprin] 81 mg PO DAILY 09/29/16 [History] Balsalazide [Colazal] 1,500 mg PO TID 09/29/16 [History] Multivitamin [Multi-Day Vitamins] 1 tab PO DAILY 09/29/16 [History] Albuterol [Ventolin HFA] 2 puff INH Q4H PRN 04/15/17 [History] Past Medical History Cardiovascular History: Reports: Aneurysm, Hypertension, SOB on Exertion Respiratory History: Reports: COPD Other Gastrointestinal History: "bleeding" colitis - Infectious Disease History Infectious Disease History: Reports: Chicken Pox - Past Surgical History Cardiovascular Surgical History: Reports: AAA Repair, Coronary Artery Stent Respiratory Surgical History: Reports: None GI Surgical History: Reports: Hernia Repair/Other Other GI Surgeries/Procedures: hernis repair x 2 Social & Family History - Tobacco Use Smoking Status *Q: Former Smoker Years of Tobacco use: 20 Packs/Tins Daily: 0.5 Used Tobacco, but Quit: Yes Month Tobacco Last Used: 11/01 Second Hand Smoke Exposure: Yes - Caffeine Use Caffeine Use: Reports: Coffee, Soda, Tea - Alcohol Use Days Per Week of Alcohol Use: 0 - Recreational Drug Use Recreational Drug Use: No ED ROS GENERAL - Review of Systems Review Of Systems: See Below Constitutional: Denies: Fever, Chills HEENT: Reports: No Symptoms Respiratory: Reports: Shortness of Breath (Not beyond baseline), Wheezing, Cough Cardiovascular: Reports: Dyspnea on Exertion GI/Abdominal: Reports: Black Stool, Bloody Stool. Denies: Abdominal Pain, Nausea, Vomiting : Reports: No Symptoms Musculoskeletal: Reports: No Symptoms Skin: Reports: No Symptoms Neurological: Reports: No Symptoms ED EXAM, GI/ABD - Physical Exam Exam: See Below Text/Narrative:: General: Male, visibly short of breath can only speak in 2 and 3 word sentences is not tripoding, alert and oriented x3 HEENT: head is atraumatic normocephalic , eyes pupils equal round reactive to light, sclera clear no conjunctivitis appreciated. Ears blocked by cerumen bilaterally. Nose no septal deviation, nares are clear, no blood present. Mouth mucosa is moist and pink no erythema or exudate noted in soft palate, tongue is midline uvula is midline, dentition is intact. Neck: Supple no thyromegaly no tracheal deviation. Nodes: Cervical nodes subclavicular nodes nontender no palpable lymphadenopathy noted. Lungs: Breath sounds are distant with rhonchi and wheezing mid to lower lung barrera bilaterally CV: Regular rate and rhythm S1 and S2 appreciated no murmurs rubs or gallops noted. Abdomen: Soft, obese, nontender, no palpable masses or organomegaly appreciated , no distention no guarding bowel sounds are present, rectal exam good sphincter tone no fissures no hemorrhoids or masses noted prostate is smooth and nontender occult blood obtained he does have denuded skin around the anus in the gluteal cleft . Neuro: Cranial nerves II through XII grossly intact Skin: Warm and dry, intact Extremities: No lower extremity edema appreciated . Course - Vital Signs Last Recorded V/S: Last Vital Signs Temp 97.5 F 04/15/17 10:56 Pulse 81 04/15/17 13:21 Resp 22 H 04/15/17 13:21 BP 120/75 04/15/17 13:21 Pulse Ox 94 L 04/15/17 13:21 - Orders/Labs/Meds Orders: Active Orders 24 hr Category Date Time Status Peripheral IV Care [RC] . DIRECTED Care 04/15/17 11:16 Active RT Aerosol Therapy [RC] ASDIRECTED Care 04/15/17 11:18 Active Vital Signs [RC] Q1H Care 04/15/17 11:14 Active Chest 1V Frontal [CR] Urgent Exams 04/15/17 11:14 Taken CULTURE BLOOD [BC] Urgent Lab 04/15/17 11:28 Received CULTURE BLOOD [BC] Urgent Lab 04/15/17 11:33 Received Lactated Ringers [Ringers, Lactated] 1,000 ml Med 04/15/17 11:15 Active IV ASDIRECTED Sodium Chloride 0.9% [Saline Flush] Med 04/15/17 11:14 Active 10 ml FLUSH ASDIRECTED PRN Blood Culture x2 Reflex Set [OM.PC] Urgent Oth 04/15/17 11:14 Ordered Peripheral IV Insertion Adult [OM.PC] Urgent Oth 04/15/17 11:14 Ordered Peripheral IV Insertion Adult [OM.PC] Urgent Oth 04/15/17 11:14 Ordered Medication Orders Lactated Ringer's (Ringers, Lactated) 1,000 mls @ 500 mls/hr IV ASDIRECTED CHARY Last Admin: 04/15/17 11:41 Dose: 500 mls/hr Sodium Chloride (Saline Flush) 10 ml FLUSH ASDIRECTED PRN PRN Reason: Keep Vein Open Last Admin: 04/15/17 11:41 Dose: 10 ml Labs: Laboratory Tests 04/15/17 04/15/17 04/15/17 Range/Units 11:28 11:28 11:28 WBC 9.0 (4.5-11.0) K/uL RBC 4.65 (4.30-5.90) M/uL Hgb 13.6 (12.0-15.0) g/dL Hct 42.1 (40.0-54.0) % MCV 91 (80-98) fL MCH 29 (27-31) pg MCHC 32 (32-36) % Plt Count 213 (150-400) K/uL Neut % (Auto) 71 H (36-66) % Lymph % (Auto) 20 L (24-44) % Addison % (Auto) 9 H (2-6) % Eos % (Auto) 0 L (2-4) % Baso % (Auto) 1 (0-1) % PT (9.5-12.0) sec INR (0.80-1.20) Sodium 136 L (140-148) mmol/L Potassium 4.1 (3.6-5.2) mmol/L Chloride 99 L (100-108) mmol/L Carbon Dioxide 29 (21-32) mmol/L Anion Gap 12.1 (5.0-14.0) mmol/L BUN 12 (7-18) mg/dL Creatinine 0.9 (0.8-1.3) mg/dL Est Cr Clr Drug Dosing 105.63 mL/min Estimated GFR (MDRD) > 60 (>60) Glucose 128 H (74-106) mg/dL Lactic Acid 1.4 (0.4-2.0) mmol/L Calcium 9.0 (8.5-10.1) mg/dL Total Bilirubin 0.3 (0.2-1.0) mg/dL AST 31 (15-37) U/L ALT 30 (12-78) U/L Alkaline Phosphatase 63 (46-116) U/L Troponin I (0.000-0.056) ng/mL C-Reactive Protein 6.22 H (0.0-0.3) mg/dL Total Protein 6.8 (6.4-8.2) g/dL Albumin 2.9 L (3.4-5.0) g/dL Globulin 3.9 H (2.3-3.5) g/dL Albumin/Globulin Ratio 0.7 L (1.2-2.2) Urine Color Urine Appearance Urine pH (4.5-8.0) Ur Specific [place] (1.008-1.030) Urine Protein (NEGATIVE) mg/dL Urine Glucose (UA) (NEGATIVE) mg/dL Urine Ketones (NEGATIVE) mg/dL Urine Occult Blood (NEGATIVE) Urine Nitrite (NEGAITVE) Urine Bilirubin (NEGATIVE) Urine Urobilinogen (NORMAL) mg/dL Ur Leukocyte Esterase (NEGATIVE) Urine RBC (0-5) Urine WBC (0-5) Ur Epithelial Cells Amorphous Sediment Urine Bacteria Urine Mucus 04/15/17 04/15/17 04/15/17 Range/Units 11:28 11:28 13:09 WBC (4.5-11.0) K/uL RBC (4.30-5.90) M/uL Hgb (12.0-15.0) g/dL Hct (40.0-54.0) % MCV (80-98) fL MCH (27-31) pg MCHC (32-36) % Plt Count (150-400) K/uL Neut % (Auto) (36-66) % Lymph % (Auto) (24-44) % [place]ison % (Auto) (2-6) % Eos % (Auto) (2-4) % Baso % (Auto) (0-1) % PT 10.3 (9.5-12.0) sec INR 0.96 (0.80-1.20) Sodium (140-148) mmol/L Potassium (3.6-5.2) mmol/L Chloride (100-108) mmol/L Carbon Dioxide (21-32) mmol/L Anion Gap (5.0-14.0) mmol/L BUN (7-18) mg/dL Creatinine (0.8-1.3) mg/dL Est Cr Clr Drug Dosing mL/min Estimated GFR (MDRD) (>60) Glucose (74-106) mg/dL Lactic Acid (0.4-2.0) mmol/L Calcium (8.5-10.1) mg/dL Total Bilirubin (0.2-1.0) mg/dL AST (15-37) U/L ALT (12-78) U/L Alkaline Phosphatase (46-116) U/L Troponin I < 0.017 (0.000-0.056) ng/mL C-Reactive Protein (0.0-0.3) mg/dL Total Protein (6.4-8.2) g/dL Albumin (3.4-5.0) g/dL Globulin (2.3-3.5) g/dL Albumin/Globulin Ratio (1.2-2.2) Urine Color Yellow Urine Appearance Clear Urine pH 6.0 (4.5-8.0) Ur Specific [place] 1.015 (1.008-1.030) Urine Protein Negative (NEGATIVE) mg/dL Urine Glucose (UA) Normal (NEGATIVE) mg/dL Urine Ketones Negative (NEGATIVE) mg/dL Urine Occult Blood Negative (NEGATIVE) Urine Nitrite Negative (NEGAITVE) Urine Bilirubin Negative (NEGATIVE) Urine Urobilinogen Normal (NORMAL) mg/dL Ur Leukocyte Esterase Negative (NEGATIVE) Urine RBC Not seen (0-5) Urine WBC 0-5 (0-5) Ur Epithelial Cells Rare Amorphous Sediment Not seen Urine Bacteria Not seen Urine Mucus Few Meds: Medications Generic Name Dose Route Start Last Admin Trade Name Freq PRN Reason Stop Dose Admin Lactated Ringer's 1,000 mls @ 500 mls/hr 04/15/17 11:15 04/15/17 11:41 Ringers, Lactated IV 500 mls/hr ASDIRECTED CHARY Administration Sodium Chloride 10 ml 04/15/17 11:14 04/15/17 11:41 Saline Flush FLUSH 10 ml ASDIRECTED PRN Administration Keep Vein Open Discontinued Medications Generic Name Dose Route Start Last Admin Trade Name Freq PRN Reason Stop Dose Admin Albuterol/Ipratropium 3 ml 04/15/17 11:18 04/15/17 11:36 Duoneb 3.0-0.5 Mg/3 Ml NEB 04/15/17 11:19 3 ml ONETIME ONE Administration Departure - Departure Time of Disposition: 14:02 Disposition: Home, Self-Care 01 Condition: Fair Clinical Impression: COPD exacerbation - Discharge Information Referrals: Ralph Startton PA [Primary Care Provider] - Forms: ED Department Discharge Additional Instructions: Take full course of antibiotics, take full course of prednisone, please follow- up with your primary care provider in the next 3-5 days for reevaluation recommend oxygen and sleep studies, call return to the emergency department with worsening of symptoms - My Orders Last 24 Hours: My Active Orders 04/15/17 11:14 Vital Signs [RC] Q1H Chest 1V Frontal [CR] Urgent Sodium Chloride 0.9% [Saline Flush] 10 ml FLUSH ASDIRECTED PRN Blood Culture x2 Reflex Set [OM.PC] Urgent Peripheral IV Insertion Adult [OM.PC] Urgent Peripheral IV Insertion Adult [OM.PC] Urgent 04/15/17 11:15 Lactated Ringers [Ringers, Lactated] 1,000 ml IV ASDIRECTED 04/15/17 11:16 Peripheral IV Care [RC] . DIRECTED 04/15/17 11:18 RT Aerosol Therapy [RC] ASDIRECTED 04/15/17 11:28 CULTURE BLOOD [BC] Urgent 04/15/17 11:33 CULTURE BLOOD [BC] Urgent - Assessment/Plan Last 24 Hours: My Active Orders 04/15/17 11:14 Vital Signs [RC] Q1H Chest 1V Frontal [CR] Urgent Sodium Chloride 0.9% [Saline Flush] 10 ml FLUSH ASDIRECTED PRN Blood Culture x2 Reflex Set [OM.PC] Urgent Peripheral IV Insertion Adult [OM.PC] Urgent Peripheral IV Insertion Adult [OM.PC] Urgent 04/15/17 11:15 Lactated Ringers [Ringers, Lactated] 1,000 ml IV ASDIRECTED 04/15/17 11:16 Peripheral IV Care [RC] . DIRECTED 04/15/17 11:18 RT Aerosol Therapy [RC] ASDIRECTED 04/15/17 11:28 CULTURE BLOOD [BC] Urgent 04/15/17 11:33 CULTURE BLOOD [BC] Urgent Plan: Assessment Acuity = acute Site and laterality = COPD exacerbation complicated patient with known history of colitis disease Etiology = suspicious for bacterial cause Manifestations = dyspnea, black tarry stools and bright red stools unclear etiology Location of injury = Home Lab values = occult blood on stool was negative, CBC unremarkable INR within normal limits CMP within normal limits lactic acid normal 1.4 troponin was negative CRP elevated 6.2 to albumin low at 2.9 consistent hypoalbuminemia, urinalysis unremarkable, chest x-ray I did review films myself I cannot appreciate any acute process, the official read from radiology is pending Plan I did review lab work will call blood stool chest x-ray with him he had some improvement with the nebulizer treatment he does produce yellow sputum I'm suspicious for chronic bronchitis and his COPD history he remains wheezy therefore place him on prednisone 20 mg once a day for 5 days in combination with azithromycin 5 day course I'm also suspicious for hypoxemia at night recommend he follow-up with his primary care in the next 3-5 days for reevaluation with a sleep study and evaluation for oxygen, he was able to maintain his O2 saturation while at rest however I'm suspicious with exertion or sleeping it will decrease This note was dictated using Chat[employer] voice recognition software please call with any questions on syntax or robert.
[2017-04-15 13:23] VITALS: BP 120/75
--- NOTE | 2017-04-15 14:31 | CR ---
Chest 1V Frontal HISTORY: Shortness of breath. COMPARISON: 10/09/2016. FINDINGS: Mild hyperinflation. Cardiac size is stable. No acute congestive change no dense infiltrate s or effusions.
== END 2017-04-15 14:11 | disposition home or self-care (01) ==
LOC: JP.ED 10:32
DX: J44.1 Chronic obstructive pulmonary disease with (acute) exacerbation (principal); I10 Essential (primary) hypertension; Z88.1 Allergy status to other antibiotic agents; Z79.82 Long term (current) use of aspirin; Z87.891 Personal history of nicotine dependence
CPT/HCPCS: 36415; 71045; 80053; 81001; 82270; 83605; 84484; 85025; 85610; 86140; 87040; 87804; 94640; 96360; 96361; 99284; J7050; J7120; J7620

== ENCOUNTER 2024-04-21 07:34 | Day surgery (SDC) | payer MEDICARE ==
[2024-04-21] MEDS ORDERED: fentaNYL 250 MCG/5 ML SDV ONE (09:01)
[2024-04-21] MEDS ORDERED: Ondansetron 4 MG/2 ML SDV ONE (09:04)
[2024-04-21] MEDS ORDERED: Neostigmine Methylsulfate 10 MG/10 ML MDV ONE (09:04)
[2024-04-21] MEDS ORDERED: Rocuronium 50 MG/5 ML Vial ONE (09:04)
[2024-04-21] MEDS ORDERED: Succinylcholine 200 MG/10 ML MDV ONE (09:04)
[2024-04-21] MEDS ORDERED: Propofol 200 MG/20 ML SDV ONE (09:04)
[2024-04-21] MEDS ORDERED: Glycopyrrolate 0.2 MG/ML 5 ML MDV ONE (09:04)
[2024-04-21] MEDS ORDERED: Dexamethasone 4 MG/ML SDV ONE (09:04)
[2024-04-21] MEDS: Lactated Ringers 1,000 ML IV SCH (09:30)
[2024-04-21] MEDS: Albuterol/Ipratropium 3.0-0.5 MG/3 ML Neb Soln NEB ONE (09:30)
[2024-04-21] MEDS: Clindamycin in 0.9 % Sod Chlor 900 MG in Premix Bag 1 BAG IV ONE (13:10)
[2024-04-21] MEDS ORDERED: Lactated Ringers 1,000 ML ONE (13:31)
[2024-04-21] MEDS: Bupivacaine 0.25%/EPINEPHrine 1:200,000 30 ML SDV INJECT ONE (13:50)
[2024-04-21] MEDS: oxyCODONE 5 MG Tab PO ONE (15:21)
[2024-04-21 16:17] VITALS: BP 142/83; PULSE 87
== END 2024-04-21 16:10 | disposition home or self-care (01) ==
LOC: JP.SDS 07:34
PROVIDERS: ATTEND Surgery
DX: K40.91 Unilateral inguinal hernia, without obstruction or gangrene, recurrent (principal); J44.9 Chronic obstructive pulmonary disease, unspecified; E11.9 Type 2 diabetes mellitus without complications; Z79.899 Other long term (current) drug therapy; Z88.0 Allergy status to penicillin
CPT/HCPCS: 49651; 94640; A9270; C1781; J0330; J0737; J1100; J1596; J2405; J2704; J2710; J3010; J7120; J3490; J7620